=== PATIENT | male | born 1955 | race Hispanic/Latino ===

== ENCOUNTER 2021-11-20 07:44 | Observation (INO) | payer MEDICARE ==
[2021-11-16 13:53] LABS: BASOPHILS % (AUTO) 0.7 % (0.0-5.0); EOSINOPHILS % (AUTO) 1.7 % (0.0-8.0); HEMATOCRIT 48.6 % (42-54); LYMPHOCYTES % (AUTO) 28.5 % (21.0-51.0); MEAN CORPUSCULAR HEMOGLOBIN 29.1 pg (27.0-33.0); MEAN CORPUSCULAR HGB CONC 33.5 g/dL (32.0-36.0); MEAN CORPUSCULAR VOLUME 86.6 fL (79-99); NEUTROPHILS % (AUTO) 61.3 % (40.0-77.0); PLATELET COUNT (AUTO) 222 K/uL (130-400); RED BLOOD CELL COUNT(AUTO) 5.61 MIL/uL (4.50-6.20); WHITE BLOOD COUNT (AUTO) 7.6 K/uL (4.8-10.8)
[2021-11-16 14:04] LABS: CREATININE 0.7 mg/dL (0.5-1.5); POTASSIUM 4.2 mmol/L (3.5-5.1)
[2021-11-16 14:08] LABS: INR 1.1 (0.85-1.15); PROTHROMBIN TIME 11.9 SEC (9.6-11.6)
[2021-11-16 14:09] LABS: PARTIAL THROMBOPLASTIN TIME 28.2 SEC (26.3-35.5)
[2021-11-19 10:06] VITALS: BP 186/102
[~2021-11-20] VITALS: Ht 168.9 cm; Wt 113.9 kg
[2021-11-20] VITALS (22 sets, daily range): BP systolic 119–183; BP diastolic 70–101
[2021-11-20] MEDS: CEFAZOLIN SODIUM 1 GM VIAL IVP SCH ×3 (06:00→18:16)
[~2021-11-20 07:44] MED LIST: ACET-2247 PO; AEC81 PO; CELE-84 PO; DULO30CA52 PO; MELO-106 PO; TRAM50TA4 PO
[2021-11-20] MEDS ORDERED: LACTATED RINGERS 1000ML 1,000 ML IV ONE (08:10)
[2021-11-20] MEDS ORDERED: LIDOCAINE PF 100MG/5ML (2%) SYRINGE 5ML ONE (09:14)
[2021-11-20] MEDS ORDERED: ONDANSETRON 4MG INJ ONE (09:15)
[2021-11-20] MEDS ORDERED: DEXAMETHASONE SOD PHOSPHATE 10MG/ML 1ML VIAL ONE (09:15)
[2021-11-20] MEDS ORDERED: SUCCINYLCHOLINE CHLORIDE 20 MG/ML 10 ML VIAL ONE (09:15)
[2021-11-20] MEDS ORDERED: GLYCOPYRROLATE 1 MG/5 ML SYRINGE ONE ×2 (09:15→13:09)
[2021-11-20] MEDS ORDERED: PROPOFOL 10 MG/ML 20ML VIAL IV ONE (09:15)
[2021-11-20] MEDS ORDERED: SUCCINYLCHOLINE 200MG/10ML SYR ONE (09:15)
[2021-11-20] MEDS ORDERED: FENTANYL CITRATE PF 50 MCG/1 ML 2ML VIAL ONE ×2 (09:16→11:13)
[2021-11-20] MEDS ORDERED: ROCURONIUM 10MG/1ML SYR 10 MG/ML ML ONE (09:16)
[2021-11-20] MEDS ORDERED: MIDAZOLAM HCL 1 MG/ML 2ML VIAL ONE (09:16)
[2021-11-20] MEDS ORDERED: NEOSTIGMINE 5MG/5ML SYR IV ONE (09:16)
[2021-11-20] MEDS ORDERED: ROPIVACAINE 0.5% 5MG/ML 30ML IJ ONE (09:19)
[2021-11-20] MEDS ORDERED: TRANEXAMIC ACID 1000MG/10ML ONE (10:29)
[2021-11-20] MEDS ORDERED: MORPHINE 4 MG SYG IVP PRN (11:00)
[2021-11-20] MEDS ORDERED: DULOXETINE HCL 30 MG CAP PO SCH (11:00)
[2021-11-20] MEDS ORDERED: HYDROCODONE/ACETAMINOPHEN 10/325 MG TAB PO PRN (11:00)
[2021-11-20] MEDS: 0.9%NACL 1000ML 1,000 ML IV SCH ×3 (11:00→13:53)
[2021-11-20] MEDS ORDERED: HYDROCODONE/ACETAMINOPHEN 5/325 MG TAB PO PRN (11:00)
[2021-11-20] MEDS: ACETAMINOPHEN 500 MG TABLET PO SCH ×2 (11:00→18:13)
[2021-11-20] MEDS ORDERED: ONDANSETRON 4MG INJ IVP PRN (11:00)
[2021-11-20] MEDS: TRAMADOL HCL 50 MG TABLET PO SCH ×2 (12:00→18:00)
[2021-11-20] MEDS: FAMOTIDINE 20MG TAB PO SCH (20:32)
[2021-11-20] MEDS: ASPIRIN 81 MG EC TAB PO SCH (20:32)
[2021-11-20] MEDS: CELECOXIB 200 MG CAP PO SCH (20:32)
[2021-11-21 00:04] VITALS: BP 128/77
[2021-11-21] MEDS: TRAMADOL HCL 50 MG TABLET PO SCH ×4 (00:23→17:36)
[2021-11-21] MEDS ORDERED: CEFAZOLIN SODIUM 1 GM VIAL ONE (03:05)
[2021-11-21] MEDS: CEFAZOLIN SODIUM 1 GM VIAL IVP SCH (03:12)
[2021-11-21] MEDS: ACETAMINOPHEN 500 MG TABLET PO SCH ×2 (03:13→10:34)
[2021-11-21 03:47] LABS: HEMATOCRIT 41.3 % (42-54); MEAN CORPUSCULAR HEMOGLOBIN 28.1 pg (27.0-33.0); MEAN CORPUSCULAR HGB CONC 32.9 g/dL (32.0-36.0); MEAN CORPUSCULAR VOLUME 85.3 fL (79-99); RED BLOOD CELL COUNT(AUTO) 4.84 MIL/uL (4.50-6.20); RED CELL DISTRIBUTION WIDTH 11.8 % (11.0-15.5); WHITE BLOOD COUNT (AUTO) 12.8 K/uL (4.8-10.8)
[2021-11-21 03:52] LABS: CREATININE 0.9 mg/dL (0.5-1.5); POTASSIUM 4.5 mmol/L (3.5-5.1)
[2021-11-21 04:36] VITALS: BP 131/76
[2021-11-21 07:45] VITALS: BP 135/79
[2021-11-21] MEDS ORDERED: POLYETHYLENE GLYCOL 3350 17 GM POWD.PACK PO SCH (09:00)
[2021-11-21] MEDS: FAMOTIDINE 20MG TAB PO SCH (10:33)
[2021-11-21] MEDS: CELECOXIB 200 MG CAP PO SCH (10:33)
[2021-11-21] MEDS: ASPIRIN 81 MG EC TAB PO SCH (10:33)
[2021-11-21 11:30] VITALS: BP 124/74
[2021-11-21 15:35] VITALS: BP 119/67
[2021-11-23] MEDS ORDERED: BISACODYL 10 MG SUPP.RECT RC PRN (11:00)
== END 2021-11-21 18:00 | disposition home or self-care (01) ==
LOC: DAH 07:44 → DAHIP 07:45 → DAH 07:45 → 4BH 15:04
PROVIDERS: ADMIT Orthopaedic Surgery; ATTEND Orthopaedic Surgery
DX: M17.12 Unilateral primary osteoarthritis, left knee (principal); Z20.822 Contact with and (suspected) exposure to COVID-19; E11.9 Type 2 diabetes mellitus without complications; E66.9 Obesity, unspecified; M25.562 Pain in left knee; Z68.39 Body mass index [BMI] 39.0-39.9, adult; Z79.84 Long term (current) use of oral hypoglycemic drugs; Z79.899 Other long term (current) drug therapy
CPT/HCPCS: 36415; 64445; 64447; 64450; 76942; 80048; 82948; 85025; 85027; 85610; 85730; 87635; 87641; 88305; 88311; 93005; 96374; 96376; 97039; C9803; G0378; J0330; J0690; J1100; J2001; J2250; J2405; J2704; J2710; J2795; J3010; J3490; J7030; J7120

== ENCOUNTER 2022-03-12 07:24 | Observation (INO) | payer MEDICARE ==
[2022-03-07 14:39] LABS: BASOPHILS % (AUTO) 0.7 % (0.0-5.0); EOSINOPHILS % (AUTO) 2.6 % (0.0-8.0); HEMATOCRIT 48.7 % (42-54); LYMPHOCYTES % (AUTO) 27.4 % (21.0-51.0); MEAN CORPUSCULAR HEMOGLOBIN 28.4 pg (27.0-33.0); MEAN CORPUSCULAR HGB CONC 33.5 g/dL (32.0-36.0); MEAN CORPUSCULAR VOLUME 84.8 fL (79-99); MONOCYTES % (AUTO) 7.5 % (3.0-13.0); NEUTROPHILS % (AUTO) 60.8 % (40.0-77.0); PLATELET COUNT (AUTO) 237 K/uL (130-400); RED BLOOD CELL COUNT(AUTO) 5.74 MIL/uL (4.50-6.20); WHITE BLOOD COUNT (AUTO) 8.8 K/uL (4.8-10.8)
[2022-03-07 14:50] LABS: CREATININE 0.8 mg/dL (0.5-1.5); POTASSIUM 4.3 mmol/L (3.5-5.1)
[2022-03-07 14:52] LABS: INR 1.02 (0.85-1.15); PROTHROMBIN TIME 11.1 SEC (9.6-11.6)
[2022-03-07 14:54] LABS: PARTIAL THROMBOPLASTIN TIME 27.1 SEC (26.3-35.5)
[2022-03-11 10:12] VITALS: BP 205/105
[2022-03-12] VITALS (23 sets, daily range): BP systolic 97–164; BP diastolic 52–87
[~2022-03-12] VITALS: Ht 167.6 cm; Wt 114.8 kg
[~2022-03-12 07:24] MED LIST changes: -ACET-2247 PO; -MELO-106 PO; +NACL 0.9% IV SCH; +ROPIVICAINE 250MG+KETOROLAC 15MG+EPINEPHRINE 0.3+CLONIDINE 80 IV PRN; +TRANEXAMIC ACID IV SCH
[2022-03-12] MEDS: CEFAZOLIN SODIUM 1 GM VIAL IVP SCH ×3 (09:30→20:43)
[2022-03-12] MEDS: LACTATED RINGERS 1000ML 1,000 ML IV SCH ×2 (09:47→14:29)
[2022-03-12] MEDS ORDERED: PROPOFOL 1000 MG/100 ML 100 ML IV ONE ×2 (10:52→13:36)
[2022-03-12] MEDS ORDERED: ROPIVACAINE 0.5% 5MG/ML 30ML IJ ONE (10:53)
[2022-03-12] MEDS ORDERED: FAMOTIDINE 20MG VIAL IV ONE (10:53)
[2022-03-12] MEDS ORDERED: LIDOCAINE PF 100MG/5ML (2%) SYRINGE 5ML ONE (10:59)
[2022-03-12] MEDS ORDERED: SUCCINYLCHOLINE CHLORIDE 20 MG/ML 10 ML VIAL ONE (10:59)
[2022-03-12] MEDS ORDERED: ROCURONIUM 10MG/1ML SYR 10 MG/ML ML ONE (11:00)
[2022-03-12] MEDS ORDERED: PROPOFOL 10 MG/ML 20ML VIAL IV ONE (11:00)
[2022-03-12] MEDS ORDERED: FENTANYL CITRATE PF 50 MCG/1 ML 2ML VIAL ONE (11:00)
[2022-03-12] MEDS ORDERED: GLYCOPYRROLATE 1 MG/5 ML SYRINGE ONE (11:00)
[2022-03-12] MEDS ORDERED: TRANEXAMIC ACID 1000MG/10ML ONE (11:22)
[2022-03-12] MEDS ORDERED: MIDAZOLAM HCL 1 MG/ML 2ML VIAL ONE (11:46)
[2022-03-12] MEDS ORDERED: EPHEDRINE SULFATE 50 MG/ML AMPULE ONE (12:21)
[2022-03-12] MEDS ORDERED: FERROUS FUMARATE 324 MG TABLET PO PRN (12:30)
[2022-03-12] MEDS ORDERED: ONDANSETRON 4MG INJ IVP PRN (12:30)
[2022-03-12] MEDS ORDERED: HYDROCODONE/ACETAMINOPHEN 5/325 MG TAB PO PRN (12:30)
[2022-03-12] MEDS ORDERED: HYDROCODONE/ACETAMINOPHEN 10/325 MG TAB PO PRN (12:30)
[2022-03-12] MEDS ORDERED: POTASSIUM CHLORIDE 20MEQ/100ML 100 ML IV PRN (12:30)
[2022-03-12] MEDS ORDERED: LIDOCAINE HCL-MPF 1% 2ML VIAL IV PRN (12:30)
[2022-03-12] MEDS: ACETAMINOPHEN 500 MG TABLET PO SCH ×2 (12:30→20:43)
[2022-03-12] MEDS: 0.9%NACL 1000ML 1,000 ML IV SCH ×2 (12:30→22:42)
[2022-03-12] MEDS ORDERED: KCL 20 MEQ ERTAB PO PRN (12:30)
[2022-03-12] MEDS ORDERED: MORPHINE 4 MG SYG IVP PRN (12:30)
[2022-03-12] MEDS ORDERED: POTASSIUM CHLORIDE 10% ELIXIR 20 MEQ/15 ML UDCUP PO PRN (12:30)
[2022-03-12] MEDS ORDERED: KETOROLAC 15MG/ML VIAL (15MG/ML) IV PRN (12:30)
[2022-03-12] MEDS ORDERED: ONDANSETRON 4MG INJ ONE (12:48)
[2022-03-12] MEDS ORDERED: NEOSTIGMINE 5MG/5ML SYR IV ONE (13:55)
[2022-03-12] MEDS ORDERED: MEPERIDINE-PF 25 MG/ML SYG ONE (14:17)
[2022-03-12] MEDS: TRAMADOL HCL 50 MG TABLET PO SCH (18:54)
[2022-03-12] MEDS: FAMOTIDINE 20MG TAB PO SCH (20:43)
[2022-03-12] MEDS: ASPIRIN 81 MG EC TAB PO SCH (20:44)
[2022-03-13] VITALS: BP 145/77
[2022-03-13] MEDS: TRAMADOL HCL 50 MG TABLET PO SCH ×3 (00:29→13:26)
[2022-03-13 03:32] LABS: HEMATOCRIT 42.9 % (42-54); MEAN CORPUSCULAR HEMOGLOBIN 28.4 pg (27.0-33.0); MEAN CORPUSCULAR HGB CONC 32.9 g/dL (32.0-36.0); MEAN CORPUSCULAR VOLUME 86.3 fL (79-99); RED BLOOD CELL COUNT(AUTO) 4.97 MIL/uL (4.50-6.20); RED CELL DISTRIBUTION WIDTH 13.3 % (11.0-15.5); WHITE BLOOD COUNT (AUTO) 12.5 K/uL (4.8-10.8)
[2022-03-13 03:43] LABS: CREATININE 0.8 mg/dL (0.5-1.5); POTASSIUM 4.6 mmol/L (3.5-5.1)
[2022-03-13] MEDS: ACETAMINOPHEN 500 MG TABLET PO SCH ×2 (03:52→13:27)
[2022-03-13 04:00] VITALS: BP 145/74
[2022-03-13] MEDS ORDERED: CEFAZOLIN SODIUM 1 GM VIAL ONE (04:00)
[2022-03-13] MEDS: CEFAZOLIN SODIUM 1 GM VIAL IVP SCH (04:04)
[2022-03-13 08:00] VITALS: BP 129/68
[2022-03-13] MEDS ORDERED: POLYETHYLENE GLYCOL 3350 17 GM POWD.PACK PO SCH (09:00)
[2022-03-13] MEDS ORDERED: DULOXETINE HCL 30 MG CAP PO SCH (09:00)
[2022-03-13] MEDS: ASPIRIN 81 MG EC TAB PO SCH (10:12)
[2022-03-13] MEDS: FAMOTIDINE 20MG TAB PO SCH (10:12)
[2022-03-13 12:00] VITALS: BP 148/82
[2022-03-15] MEDS ORDERED: BISACODYL 10 MG SUPP.RECT RC PRN (12:30)
== END 2022-03-13 15:50 | disposition home or self-care (01) ==
LOC: DAH 07:24 → DAHIP 07:25 → DAH 07:25 → 4BH 16:26
PROVIDERS: ADMIT Orthopaedic Surgery; ATTEND Orthopaedic Surgery
DX: M17.11 Unilateral primary osteoarthritis, right knee (principal); Z20.822 Contact with and (suspected) exposure to COVID-19; M24.561 Contracture, right knee; M21.161 Varus deformity, not elsewhere classified, right knee; Z79.899 Other long term (current) drug therapy
CPT/HCPCS: 0055T; 27447; 36415; 64447; 76942; 80048; 85025; 85027; 85610; 85730; 87635; 87641; 96374; 96376; 97039; C9803; G0378; J0171; J0330; J0690; J0735; J1885; J2001; J2175; J2250; J2405; J2704; J2710; J2795; J3010; J3490; J7030; J7050; J7120